=== PATIENT | male | born 1930 | race Caucasian/White ===

== ENCOUNTER 2019-01-28 14:32 | Observation (INO) | payer MEDICARE, OTHER ==
[2019-01-28] MEDS ORDERED: Sodium Chloride 0.9% 10 ML Syringe FLUSH PRN (14:34)
--- NOTE | 2019-01-28 14:45 | EDM.PDOC ---
ED HPI GENERAL MEDICAL PROBLEM - General Chief Complaint: Cardiovascular Problem Stated Complaint: CHEST PAIN AND SOB Time Seen by Provider: 01/28/19 14:42 Source of Information: Reports: Patient, Family History Limitations: Reports: Other (Dementia) - History of Present Illness INITIAL COMMENTS - FREE TEXT/NARRATIVE: Presents with intermittent substernal non-radiating chest pressure x 2 days. Denies chest discomfort at this time, but was symptomatic while walking to the exam room in the ED. Patient does admit to dyspnea, also worse with exertion. Denies prior h/o CAD. He has had a cough. Onset Date: 01/27/19 Duration: Day(s): (2) Location: Reports: Chest Quality: Reports: Pressure Severity: Moderate Worsens with: Reports: Other (exertion) Associated Symptoms: Reports: Chest Pain, Cough, Shortness of Breath - Related Data Allergies Allergy/AdvReac Type Severity Reaction Status Date / Time No Known Allergies Allergy Verified 01/28/19 15:19 Past Medical History Cardiovascular History: Reports: Hypertension. Denies: CAD Neurological History: Reports: Other (See Below) (Dementia) Social & Family History - Tobacco Use Tobacco Use Within Last Twelve Months: No ED ROS GENERAL - Review of Systems Review Of Systems: ROS reveals no pertinent complaints other than HPI. ED EXAM, GENERAL - Physical Exam Exam: See Below Exam Limited By: No Limitations General Appearance: Alert, WD/WN, No Apparent Distress Ears: Normal External Exam Nose: Normal Inspection Throat/Mouth: Normal Inspection, No Airway Compromise Head: Atraumatic, Normocephalic Neck: Supple Respiratory/Chest: No Respiratory Distress, Lungs Clear Cardiovascular: Regular Rate, Rhythm, No Murmur, Other (no chest wall tenderness ) GI/Abdominal: Non-Tender Back Exam: Full Range of Motion Extremities: Normal Range of Motion, Non-Tender, Pedal Edema Neurological: Alert, No Motor/Sensory Deficits Psychiatric: Normal Affect Skin Exam: Warm, Dry, Intact EKG INTERPRETATION EKG Date: 01/28/19 Time: 14:37 Rhythm: NSR Rate (Beats/Min): 70 [place]: Normal P-Wave: Present QRS: Normal ST-T: Normal QT: Normal EKG Interpretation Comments: Repeat EKG shows no changes Course - Vital Signs Last Recorded V/S: Last Vital Signs Temp 36.4 C 01/28/19 14:32 Pulse 68 01/28/19 14:32 Resp 18 01/28/19 14:32 BP 139/68 01/28/19 14:32 Pulse Ox 95 01/28/19 14:32 - Orders/Labs/Meds Orders: Active Orders 24 hr Category Date Time Status Admission Status [Patient Status] [ADT] Routine ADT 01/28/19 17:50 Active EKG Documentation Completion [RC] ASDIRECTED Care 01/28/19 14:33 Active EKG Documentation Completion [RC] ASDIRECTED Care 01/28/19 17:00 Active Ang Chest [CT] Stat Exams 01/28/19 15:52 Taken CULTURE BLOOD [BC] Urgent Lab 01/28/19 17:18 Received CULTURE BLOOD [BC] Urgent Lab 01/28/19 17:24 Received Sodium Chloride 0.9% [Saline Flush] Med 01/28/19 14:34 Active 10 ml FLUSH ASDIRECTED PRN Blood Culture x2 Reflex Set [OM.PC] Urgent Oth 01/28/19 17:00 Ordered Saline Lock Insert [OM.PC] Routine Oth 01/28/19 14:34 Ordered EKG 12 Lead [EK] Stat Ther 01/28/19 14:33 Ordered EKG 12 Lead [EK] Stat Ther 01/28/19 17:00 Ordered Medication Orders Sodium Chloride (Saline Flush) 10 ml FLUSH ASDIRECTED PRN PRN Reason: Keep Vein Open Last Admin: 01/28/19 15:34 Dose: 10 ml Labs: Laboratory Tests 01/28/19 01/28/19 01/28/19 Range/Units 14:45 14:45 14:45 WBC 6.8 (4.5-12.0) X10-3/uL RBC 4.44 (4.30-5.75) x10(6)uL Hgb 13.0 L (13.5-17.8) g/dL Hct 39.7 (30.0-51.3) % MCV 89.4 (80-96) fL MCH 29.4 (27.7-33.6) pg MCHC 32.9 (32.2-35.4) g/dL RDW 13.8 (11.5-15.5) % Plt Count 168 (125-369) X10(3)uL MPV 9.4 (7.4-10.4) fL Neut % (Auto) 69.2 (46-82) % Lymph % (Auto) 16.1 (13-37) % [place] % (Auto) 8.5 (4-12) % Eos % (Auto) 6 H (1.0-5.0) % Baso % (Auto) 1 (0-2) % Neut # (Auto) 4.7 (1.6-8.3) # Lymph # (Auto) 1.1 (0.6-5.0) # Stevens # (Auto) 0.6 (0.0-1.3) # Eos # (Auto) 0.4 (0.0-0.8) # Baso # (Auto) 0.0 (0.0-0.2) # PT 9.7 (8.7-11.1) INR 1.00 (0.89-1.13) APTT 23.9 L (24.4-33.2) SECONDS D-Dimer, Quantitative 1.73 H (0.0-0.59) mg/LFEU Sodium 141 (135-145) mmol/L Potassium 3.8 (3.5-5.3) mmol/L Chloride 103 (100-110) mmol/L Carbon Dioxide 32 (21-32) mmol/L BUN 20 H (7-18) mg/dL Creatinine 0.9 (0.70-1.30) mg/dL Est Cr Clr Drug Dosing TNP Estimated GFR (MDRD) > 60 (>60) BUN/Creatinine Ratio 22.2 H (9-20) Glucose 102 (80-116) mg/dL Lactic Acid (0.4-2.2) mmol/L Calcium 8.6 (8.6-10.2) mg/dL Total Bilirubin 0.3 (0.1-1.3) mg/dL AST 18 (5-25) IU/L ALT 26 (12-36) U/L Alkaline Phosphatase 51 L (56-112) IU/L Troponin I (<0.017-0.056) ng/mL NT-Pro-B Natriuret Pep (<=450) pg/mL Total Protein 6.4 (6.0-8.0) g/dL Albumin 3.6 (3.2-4.6) g/dL Globulin 2.8 g/dL Albumin/Globulin Ratio 1.3 01/28/19 01/28/19 01/28/19 Range/Units 14:45 14:45 17:18 WBC (4.5-12.0) X10-3/uL RBC (4.30-5.75) x10(6)uL Hgb (13.5-17.8) g/dL Hct (30.0-51.3) % MCV (80-96) fL MCH (27.7-33.6) pg MCHC (32.2-35.4) g/dL RDW (11.5-15.5) % Plt Count (125-369) X10(3)uL MPV (7.4-10.4) fL Neut % (Auto) (46-82) % Lymph % (Auto) (13-37) % Stevens % (Auto) (4-12) % Eos % (Auto) (1.0-5.0) % Baso % (Auto) (0-2) % Neut # (Auto) (1.6-8.3) # Lymph # (Auto) (0.6-5.0) # Stevens # (Auto) (0.0-1.3) # Eos # (Auto) (0.0-0.8) # Baso # (Auto) (0.0-0.2) # PT (8.7-11.1) INR (0.89-1.13) APTT (24.4-33.2) SECONDS D-Dimer, Quantitative (0.0-0.59) mg/LFEU Sodium (135-145) mmol/L Potassium (3.5-5.3) mmol/L Chloride (100-110) mmol/L Carbon Dioxide (21-32) mmol/L BUN (7-18) mg/dL Creatinine (0.70-1.30) mg/dL Est Cr Clr Drug Dosing Estimated GFR (MDRD) (>60) BUN/Creatinine Ratio (9-20) Glucose (80-116) mg/dL Lactic Acid 0.7 (0.4-2.2) mmol/L Calcium (8.6-10.2) mg/dL Total Bilirubin (0.1-1.3) mg/dL AST (5-25) IU/L ALT (12-36) U/L Alkaline Phosphatase (56-112) IU/L Troponin I < 0.017 L (<0.017-0.056) ng/mL NT-Pro-B Natriuret Pep 57 (<=450) pg/mL Total Protein (6.0-8.0) g/dL Albumin (3.2-4.6) g/dL Globulin g/dL Albumin/Globulin Ratio // Range/Units 17:18 WBC (4.5-12.0) X10-3/uL RBC (4.30-5.75) x10(6)uL Hgb (13.5-17.8) g/dL Hct (30.0-51.3) % MCV (80-96) fL MCH (27.7-33.6) pg MCHC (32.2-35.4) g/dL RDW (11.5-15.5) % Plt Count (125-369) X10(3)uL MPV (7.4-10.4) fL Neut % (Auto) (46-82) % Lymph % (Auto) (13-37) % Stevens % (Auto) (4-12) % Eos % (Auto) (1.0-5.0) % Baso % (Auto) (0-2) % Neut # (Auto) (1.6-8.3) # Lymph # (Auto) (0.6-5.0) # Stevens # (Auto) (0.0-1.3) # Eos # (Auto) (0.0-0.8) # Baso # (Auto) (0.0-0.2) # PT (8.7-11.1) INR (0.89-1.13) APTT (24.4-33.2) SECONDS D-Dimer, Quantitative (0.0-0.59) mg/LFEU Sodium (135-145) mmol/L Potassium (3.5-5.3) mmol/L Chloride (100-110) mmol/L Carbon Dioxide (21-32) mmol/L BUN (7-18) mg/dL Creatinine (0.70-1.30) mg/dL Est Cr Clr Drug Dosing Estimated GFR (MDRD) (>60) BUN/Creatinine Ratio (9-20) Glucose (80-116) mg/dL Lactic Acid (0.4-2.2) mmol/L Calcium (8.6-10.2) mg/dL Total Bilirubin (0.1-1.3) mg/dL AST (5-25) IU/L ALT (12-36) U/L Alkaline Phosphatase (56-112) IU/L Troponin I < 0.017 L (<0.017-0.056) ng/mL NT-Pro-B Natriuret Pep (<=450) pg/mL Total Protein (6.0-8.0) g/dL Albumin (3.2-4.6) g/dL Globulin g/dL Albumin/Globulin Ratio Influenza swab: negative Meds: Medications Generic Name Dose Route Start Last Admin Trade Name Freq PRN Reason Stop Dose Admin Sodium Chloride 10 ml 01/28/19 14:34 01/28/19 15:34 Saline Flush FLUSH 10 ml ASDIRECTED PRN Administration Keep Vein Open Discontinued Medications Generic Name Dose Route Start Last Admin Trade Name Freq PRN Reason Stop Dose Admin Aspirin 324 mg 01/28/19 15:14 01/28/19 15:27 Aspirin PO 01/28/19 15:15 324 mg ONETIME ONE Administration Iopamidol 75 ml 01/28/19 15:49 Isovue-370 (76%) IV 01/28/19 15:50 ONETIME ONE - Radiology Interpretation Free Text/Narrative:: CTA chest: No evidence for pulmonary emboli, there is a lingular infiltrate. - Re-Assessments/Exams Free Text/Narrative Re-Assessment/Exam: 01/28/19 18:39 Will admit to [facility] to r/o IN and treat pneumonia. Departure - Departure Time of Disposition: 18:40 Disposition: Refer to Observation Condition: Fair Clinical Impression: Pneumonia Qualifiers: Pneumonia type: due to unspecified organism Laterality: left Lung location: lower lobe of lung Qualified Code(s): J18.1 - Lobar pneumonia, unspecified organism Chest pain Qualifiers: Chest pain type: unspecified Qualified Code(s): R07.9 - Chest pain, unspecified - My Orders Last 24 Hours: My Active Orders 01/28/19 14:33 EKG Documentation Completion [RC] ASDIRECTED EKG 12 Lead [EK] Stat 01/28/19 14:34 Sodium Chloride 0.9% [Saline Flush] 10 ml FLUSH ASDIRECTED PRN Saline Lock Insert [OM.PC] Routine 01/28/19 15:52 Ang Chest [CT] Stat 01/28/19 17:00 EKG Documentation Completion [RC] ASDIRECTED Blood Culture x2 Reflex Set [OM.PC] Urgent EKG 12 Lead [EK] Stat 01/28/19 17:18 CULTURE BLOOD [BC] Urgent 01/28/19 17:24 CULTURE BLOOD [BC] Urgent 01/28/19 17:50 Admission Status [Patient Status] [ADT] Routine - Assessment/Plan Last 24 Hours: My Active Orders 01/28/19 14:33 EKG Documentation Completion [RC] ASDIRECTED EKG 12 Lead [EK] Stat 01/28/19 14:34 Sodium Chloride 0.9% [Saline Flush] 10 ml FLUSH ASDIRECTED PRN Saline Lock Insert [OM.PC] Routine 01/28/19 15:52 Ang Chest [CT] Stat 01/28/19 17:00 EKG Documentation Completion [RC] ASDIRECTED Blood Culture x2 Reflex Set [OM.PC] Urgent EKG 12 Lead [EK] Stat 01/28/19 17:18 CULTURE BLOOD [BC] Urgent 01/28/19 17:24 CULTURE BLOOD [BC] Urgent 01/28/19 17:50 Admission Status [Patient Status] [ADT] Routine
[2019-01-28] MEDS ORDERED: Aspirin 81 MG Tab.Chew PO ONE (15:14)
[2019-01-28] MEDS ORDERED: Iopamidol 755 Mg/ML 75 ML Bottle IV ONE (15:49)
[2019-01-28] MEDS ORDERED: Sodium Chloride 0.9% 1,000 ML IV SCH (19:15)
[2019-01-28] MEDS ORDERED: Azithromycin 500 MG in Sodium Chloride 0.9% 250 ML IV SCH (20:00)
[2019-01-28] MEDS ORDERED: cefTRIAXone 1 GM in Sodium Chloride 0.9% 50 ML IV SCH (21:00)
[2019-01-28] MEDS ORDERED: cefTRIAXone 1 GM Vial IVPUSH SCH ×2 (21:00→21:30)
[2019-01-29] MEDS ORDERED: QUETIAPINE 25 MG PO ONE (04:21)
--- NOTE | 2019-01-29 08:58 | PCM.HP ---
H&P History of Present Illness - General Date of Service: 01/29/19 Admit Problem/Dx: Admission Diagnosis/Problem Admission Diagnosis/Problem Chest pain Source of Information: Patient, Family, Old Records History Limitations: Reports: Other (Dementia) - History of Present Illness Initial Comments - Free Text/Narative: 89-year-old male that presented because of pain in the chest for 2 days. Pain is in the sternum and radiates with movement and was associated some shortness of breath. He has severe dementia and thus difficulty obtaining history from. There's been no cough, fever chills. - Related Data Allergies/Adverse Reactions: Allergies Allergy/AdvReac Type Severity Reaction Status Date / Time No Known Allergies Allergy Verified 01/28/19 15:19 Home Medications: Home Meds Acetaminophen [Tylenol] 650 mg PO Q4H PRN 01/28/19 [History] Dextran 70/Hypromellose [Artificial Tears] 1 drop EYEBOTH Q1H PRN 01/28/19 [ History] Ibuprofen 200 mg PO Q6H PRN 01/28/19 [History] QUEtiapine [SEROquel] 12.5 mg PO TID PRN 01/28/19 [History] QUEtiapine [SEROquel] 25 mg PO 08,12 01/28/19 [History] QUEtiapine [SEROquel] 50 mg PO BEDTIME 01/28/19 [History] Triamterene/Hydrochlorothiazid [Triamterene-HCTZ 37.5-25 MG] 1 tab PO DAILY [History] Past Medical History Cardiovascular History: Reports: Hypertension Neurological History: Reports: Other (See Below) Other Neuro History: dementia, also had a subdural hematoma 2 yrs ago Social & Family History - Family History Family Medical History: Noncontributory - Tobacco Use Smoking Status *Q: Never Smoker - Caffeine Use Caffeine Use: Reports: Coffee - Recreational Drug Use Recreational Drug Use: No H&P Review of Systems - Review of Systems: Review Of Systems: ROS reveals no pertinent complaints other than HPI. Exam - Exam Exam: See Below - Vital Signs Vital Signs: Last Vital Signs Temp 96.9 F 01/29/19 08:00 Pulse 77 01/29/19 08:00 Resp 18 01/29/19 08:00 BP 136/74 01/29/19 08:00 Pulse Ox 96 01/29/19 08:00 Weight: 91.626 kg - Exam General: Alert HEENT: PERRLA, Hearing Intact, Mucosa Moist & [place], Nares Patent, Normal Nasal Septum, Posterior Pharynx Clear, Conjunctiva Clear, EOMI, EACs Clear, TMs Clear Neck: Supple, Trachea Midline, 2 Lungs: Clear to Auscultation, Other (Chest wall tenderness) Cardiovascular: Regular Rate, Regular Rhythm GI/Abdominal Exam: Normal Bowel Sounds, Soft, Non-Tender, No Organomegaly, No Distention, No Abnormal Bruit, No Mass, Pelvis Stable (Male) Exam: Deferred Rectal (Males) Exam: Deferred Back Exam: Normal Inspection, Full Range of Motion, NT Extremities: Normal Inspection, Normal Range of Motion, Non-Tender, No Pedal Edema, Normal Capillary Refill Skin: Warm, Dry, Intact Neurological: Cranial Nerves Intact, Reflexes Equal Bilateral Neuro Extensive - Mental Status: Alert, Oriented x3, Normal Mood/Affect, Normal Cognition Neuro Extensive - Motor, Sensory, Reflexes: CN II-XII Intact, Normal Gait, Normal Reflexes Psychiatric: Alert - Patient Data Lab Results Last 24 hrs: Laboratory Results - last 24 hr 01/28/19 01/28/19 01/28/19 Range/Units 14:45 14:45 14:45 WBC 6.8 (4.5-12.0) X10-3/uL RBC 4.44 (4.30-5.75) x10(6)uL Hgb 13.0 L (13.5-17.8) g/dL Hct 39.7 (30.0-51.3) % MCV 89.4 (80-96) fL MCH 29.4 (27.7-33.6) pg MCHC 32.9 (32.2-35.4) g/dL RDW 13.8 (11.5-15.5) % Plt Count 168 (125-369) X10(3)uL MPV 9.4 (7.4-10.4) fL Neut % (Auto) 69.2 (46-82) % Lymph % (Auto) 16.1 (13-37) % [place] % (Auto) 8.5 (4-12) % Eos % (Auto) 6 H (1.0-5.0) % Baso % (Auto) 1 (0-2) % Neut # (Auto) 4.7 (1.6-8.3) # Lymph # (Auto) 1.1 (0.6-5.0) # [place] # (Auto) 0.6 (0.0-1.3) # Eos # (Auto) 0.4 (0.0-0.8) # Baso # (Auto) 0.0 (0.0-0.2) # PT 9.7 (8.7-11.1) INR 1.00 (0.89-1.13) APTT 23.9 L (24.4-33.2) SECONDS D-Dimer, Quantitative 1.73 H (0.0-0.59) mg/LFEU Sodium 141 (135-145) mmol/L Potassium 3.8 (3.5-5.3) mmol/L Chloride 103 (100-110) mmol/L Carbon Dioxide 32 (21-32) mmol/L BUN 20 H (7-18) mg/dL Creatinine 0.9 (0.70-1.30) mg/dL Est Cr Clr Drug Dosing TNP Estimated GFR (MDRD) > 60 (>60) BUN/Creatinine Ratio 22.2 H (9-20) Glucose 102 (80-116) mg/dL Lactic Acid (0.4-2.2) mmol/L Calcium 8.6 (8.6-10.2) mg/dL Total Bilirubin 0.3 (0.1-1.3) mg/dL AST 18 (5-25) IU/L ALT 26 (12-36) U/L Alkaline Phosphatase 51 L (56-112) IU/L Troponin I (<0.017-0.056) ng/mL NT-Pro-B Natriuret Pep (<=450) pg/mL Total Protein 6.4 (6.0-8.0) g/dL Albumin 3.6 (3.2-4.6) g/dL Globulin 2.8 g/dL Albumin/Globulin Ratio 1.3 01/28/19 01/28/19 01/28/19 Range/Units 14:45 14:45 17:18 WBC (4.5-12.0) X10-3/uL RBC (4.30-5.75) x10(6)uL Hgb (13.5-17.8) g/dL Hct (30.0-51.3) % MCV (80-96) fL MCH (27.7-33.6) pg MCHC (32.2-35.4) g/dL RDW (11.5-15.5) % Plt Count (125-369) X10(3)uL MPV (7.4-10.4) fL Neut % (Auto) (46-82) % Lymph % (Auto) (13-37) % [place] % (Auto) (4-12) % Eos % (Auto) (1.0-5.0) % Baso % (Auto) (0-2) % Neut # (Auto) (1.6-8.3) # Lymph # (Auto) (0.6-5.0) # [place] # (Auto) (0.0-1.3) # Eos # (Auto) (0.0-0.8) # Baso # (Auto) (0.0-0.2) # PT (8.7-11.1) INR (0.89-1.13) APTT (24.4-33.2) SECONDS D-Dimer, Quantitative (0.0-0.59) mg/LFEU Sodium (135-145) mmol/L Potassium (3.5-5.3) mmol/L Chloride (100-110) mmol/L Carbon Dioxide (21-32) mmol/L BUN (7-18) mg/dL Creatinine (0.70-1.30) mg/dL Est Cr Clr Drug Dosing Estimated GFR (MDRD) (>60) BUN/Creatinine Ratio (9-20) Glucose (80-116) mg/dL Lactic Acid 0.7 (0.4-2.2) mmol/L Calcium (8.6-10.2) mg/dL Total Bilirubin (0.1-1.3) mg/dL AST (5-25) IU/L ALT (12-36) U/L Alkaline Phosphatase (56-112) IU/L Troponin I < 0.017 L (<0.017-0.056) ng/mL NT-Pro-B Natriuret Pep 57 (<=450) pg/mL Total Protein (6.0-8.0) g/dL Albumin (3.2-4.6) g/dL Globulin g/dL Albumin/Globulin Ratio 01/28/19 01/29/19 01/29/19 Range/Units 17:18 00:15 06:15 WBC 7.5 (4.5-12.0) X10-3/uL RBC 4.45 (4.30-5.75) x10(6)uL Hgb 12.8 L (13.5-17.8) g/dL Hct 39.4 (30.0-51.3) % MCV 88.7 (80-96) fL MCH 28.7 (27.7-33.6) pg MCHC 32.4 (32.2-35.4) g/dL RDW 13.5 (11.5-15.5) % Plt Count 170 (125-369) X10(3)uL MPV 9.8 (7.4-10.4) fL Neut % (Auto) 68.0 (46-82) % Lymph % (Auto) 16.4 (13-37) % [place] % (Auto) 9.6 (4-12) % Eos % (Auto) 5 (1.0-5.0) % Baso % (Auto) 1 (0-2) % Neut # (Auto) 5.2 (1.6-8.3) # Lymph # (Auto) 1.2 (0.6-5.0) # [place] # (Auto) 0.7 (0.0-1.3) # Eos # (Auto) 0.4 (0.0-0.8) # Baso # (Auto) 0.0 (0.0-0.2) # PT (8.7-11.1) INR (0.89-1.13) APTT (24.4-33.2) SECONDS D-Dimer, Quantitative (0.0-0.59) mg/LFEU Sodium (135-145) mmol/L Potassium (3.5-5.3) mmol/L Chloride (100-110) mmol/L Carbon Dioxide (21-32) mmol/L BUN (7-18) mg/dL Creatinine (0.70-1.30) mg/dL Est Cr Clr Drug Dosing Estimated GFR (MDRD) (>60) BUN/Creatinine Ratio (9-20) Glucose (80-116) mg/dL Lactic Acid (0.4-2.2) mmol/L Calcium (8.6-10.2) mg/dL Total Bilirubin (0.1-1.3) mg/dL AST (5-25) IU/L ALT (12-36) U/L Alkaline Phosphatase (56-112) IU/L Troponin I < 0.017 L < 0.017 L (<0.017-0.056) ng/mL NT-Pro-B Natriuret Pep (<=450) pg/mL Total Protein (6.0-8.0) g/dL Albumin (3.2-4.6) g/dL Globulin g/dL Albumin/Globulin Ratio 01/29/19 01/29/19 Range/Units 06:15 06:15 WBC (4.5-12.0) X10-3/uL RBC (4.30-5.75) x10(6)uL Hgb (13.5-17.8) g/dL Hct (30.0-51.3) % MCV (80-96) fL MCH (27.7-33.6) pg MCHC (32.2-35.4) g/dL RDW (11.5-15.5) % Plt Count (125-369) X10(3)uL MPV (7.4-10.4) fL Neut % (Auto) (46-82) % Lymph % (Auto) (13-37) % [place] % (Auto) (4-12) % Eos % (Auto) (1.0-5.0) % Baso % (Auto) (0-2) % Neut # (Auto) (1.6-8.3) # Lymph # (Auto) (0.6-5.0) # [place] # (Auto) (0.0-1.3) # Eos # (Auto) (0.0-0.8) # Baso # (Auto) (0.0-0.2) # PT (8.7-11.1) INR (0.89-1.13) APTT (24.4-33.2) SECONDS D-Dimer, Quantitative (0.0-0.59) mg/LFEU Sodium 144 (135-145) mmol/L Potassium 3.5 (3.5-5.3) mmol/L Chloride 105 (100-110) mmol/L Carbon Dioxide 33 H (21-32) mmol/L BUN 18 (7-18) mg/dL Creatinine 1.0 (0.70-1.30) mg/dL Est Cr Clr Drug Dosing 57.12 Estimated GFR (MDRD) > 60 (>60) BUN/Creatinine Ratio 18.0 (9-20) Glucose 97 (80-116) mg/dL Lactic Acid (0.4-2.2) mmol/L Calcium 8.8 (8.6-10.2) mg/dL Total Bilirubin (0.1-1.3) mg/dL AST (5-25) IU/L ALT (12-36) U/L Alkaline Phosphatase (56-112) IU/L Troponin I < 0.017 L (<0.017-0.056) ng/mL NT-Pro-B Natriuret Pep (<=450) pg/mL Total Protein (6.0-8.0) g/dL Albumin (3.2-4.6) g/dL Globulin g/dL Albumin/Globulin Ratio Result Diagrams: 01/29/19 06:15 01/29/19 06:15 [place] Results Last 24 hrs: Microbiology 01/28/19 17:15 Influenza Type A Antigen Screen - Final Nasopharyngeal Swab NEGATIVE INFLUENZA A VIRUS AG Influenza Type B Antigen Screen - Final NEGATIVE INFLUENZA B VIRUS AG EKG INTERPRETATION Rhythm: NSR - Problem List (1) Costochondritis SNOMED Code(s): 29427823 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] Status: Acute Current Visit: Yes (2) Dementia SNOMED Code(s): 67193530 ICD Code: F03.90 - UNSPECIFIED DEMENTIA WITHOUT BEHAVIORAL DISTURBANCE Status: Acute Current Visit: Yes Qualifiers: Dementia type: Alzheimer's disease (3) Lingular pneumonia SNOMED Code(s): 487433731 ICD Code: J18.9 - PNEUMONIA, UNSPECIFIED ORGANISM Status: Acute Current Visit: Yes Problem List Initiated/Reviewed/Updated: Yes Orders Last 24hrs: Active Orders 24 hr Category Date Time Status Admission Status [Patient Status] [ADT] Routine ADT 01/28/19 17:50 Active Ambulate [RC] PER UNIT ROUTINE Care 01/28/19 19:14 Active Height and Weight [RC] 0600 Care 01/28/19 19:13 Active Intake and Output [RC] 06,14,22 Care 01/28/19 19:14 Active Notify Provider Vital Signs [RC] ASDIRECTED Care 01/28/19 19:14 Active Oxygen Therapy [RC] PRN Care 01/28/19 19:13 Active Pulse Oximetry [RC] PRN Care 01/28/19 19:14 Active Up With Assistance [RC] ASDIRECTED Care 01/28/19 19:13 Active VTE/DVT Education [RC] Per Unit Routine Care 01/28/19 19:13 Active Vital Signs [RC] Q4H Care 01/28/19 19:13 Active Heart Healthy Diet [DIET] Diet 01/29/19 Breakfast Active Ang Chest [CT] Stat Exams 01/28/19 15:52 Taken CULTURE BLOOD [BC] Urgent Lab 01/28/19 17:18 Received CULTURE BLOOD [BC] Urgent Lab 01/28/19 17:24 Received Aspirin [Ecotrin] Med 01/29/19 09:00 Active 325 mg PO DAILY Azithromycin [Zithromax] 500 mg Med 01/28/19 20:00 Active Sodium Chloride 0.9% [Normal Saline] 250 ml IV Q24H Sodium Chloride 0.9% [Saline Flush] Med 01/28/19 14:34 Active 10 ml FLUSH ASDIRECTED PRN cefTRIAXone [Rocephin] Med 01/28/19 21:30 Active 1 gm IVPUSH Q24H Blood Culture x2 Reflex Set [OM.PC] Urgent Oth 01/28/19 17:00 Ordered Saline Lock Insert [OM.PC] Routine Oth 01/28/19 14:34 Ordered Resuscitation Status Routine Resus Stat 01/28/19 19:13 Ordered EKG 12 Lead [EK] AM Ther 01/29/19 05:11 Ordered EKG 12 Lead [EK] Stat Ther 01/28/19 14:33 Ordered EKG 12 Lead [EK] Stat Ther 01/28/19 17:00 Ordered Medication Orders Aspirin (Ecotrin) 325 mg PO DAILY HUE Ceftriaxone Sodium (Rocephin) 1 gm IVPUSH Q24H HUE Last Admin: 01/29/19 00:02 Dose: 1 gm Azithromycin 500 mg/ Sodium (Chloride) 250 mls @ 250 mls/hr IV Q24H HUE Last Admin: 01/28/19 20:53 Dose: 250 mls/hr Sodium Chloride (Saline Flush) 10 ml FLUSH ASDIRECTED PRN PRN Reason: Keep Vein Open Last Admin: 01/28/19 15:34 Dose: 10 ml Assessment/Plan Comment:: DC home with NSAID and Zpak. Follow up PRN
[2019-01-29] MEDS ORDERED: Aspirin 325 MG Tab.EC PO SCH (09:00)
--- NOTE | 2019-01-31 08:48 | CT ---
INDICATION: Chest pain. COMPUTERIZED TOMOGRAPHY ANGIOGRAPHY OF THE CHEST WITH CONTRAST: Spiral 1.25 mm axial images of the chest were obtained with 75 mL Isovue 370 at 3 mL/second, with sagittal and coronal reconstructions, 01/28/19 - no comparisons. Total exam DLP = 657.58 mGy-cm. There appears to be some minimal infiltrate in the left lower lobe and the lingula. This may be on the basis of pneumonia and pleuritis. There may also be some fibrosis present in that area. The entire area of pleural thickening appearance may be on the basis of fibrosis - correlate clinically. No gross consolidating pneumonia or effusion of large size was seen. Pulmonary arteries were not ideally visualized. However, no definite pulmonary embolus could be identified. The heart was not enlarged. No pericardial effusion was seen. There is some minimal coronary artery calcification. Calcifications are also noted in the arch of the aorta. Mild degree of mediastinal lymphadenopathy is noted, which is nonspecific. The upper abdomen included on the study showed evidence of somewhat dilated proximal abdominal aorta, compatible with a small aneurysmal dilatation, limited to the uppermost abdomen and above the renal arteries. There appears to be some renal fascial thickening on the left, compatible with renal cortical scarring. Bridging hyperostotic changes are noted in the mid to lower thoracic spine with a minimal dextroconvex scoliosis of the lower middle thoracic spine. IMPRESSION: 1. No definite evidence of PE. Caudal Pulmonary arteries were not ideally seen , however, possibly due to motion. 2. ASHD/ASD. 3. Renal cortical scarring. 4. Mild aneurysmal dilatation of the proximal-most abdominal aorta, well above the renal arteries. 5. Suggestion of minimal infiltrate and pleural reaction at the left lower lobe and minimally in the lingula, which may be on the basis of fibrosis and/or minimal pneumonia and pleuritis. 6. Degenerative changes and minimal scoliosis lower middle thoracic spine. Report was called to Dr. Saleh at approximately 1655 hours on 01/28/19. [facility]
== END 2019-01-29 10:05 | disposition home health service (06) ==
LOC: FB.ED 14:32 → FB.MS 18:37
PROVIDERS: ADMIT Family Medicine; ATTEND Family Medicine
DX: M94.0 Chondrocostal junction syndrome [Tietze] (principal); G30.9 Alzheimer's disease, unspecified; F02.80 Dementia in other diseases classified elsewhere, unspecified severity, without behavioral disturbance, psychotic disturbance, mood disturbance, and anxiety; J18.1 Lobar pneumonia, unspecified organism; I10 Essential (primary) hypertension; Z79.899 Other long term (current) drug therapy
CPT/HCPCS: 36415; 71275; 80048; 80053; 83605; 83880; 84484; 85025; 85379; 85610; 85730; 87040; 87804; 87804-59; 93005; 93010; 96374; 96375; 99285; A9270-GY; G0378; J0456; J0696; J7030; J7050; Q9967

== ENCOUNTER 2019-11-09 14:03 | Emergency (ER) | payer MEDICARE, OTHER ==
[2019-11-09] MEDS ORDERED: QUEtiapine 25 MG Tab PO ONE (14:26)
--- NOTE | 2019-11-09 17:07 | ER ---
DATE SEEN: 11/09/2019 REASON FOR VISIT: Behavioral changes. HISTORY OF PRESENT ILLNESS: Suzie is an 89-year-old male who lives at the [facility]. He is brought by family members, and the chief complaint is agitation and behavioral disturbance, especially at night. He has had this before and is currently on Seroquel total of 125 mg a day in divided doses. For the last two nights, especially last night, he was physically aggressive to the point where they were unable to control him. They are wondering if there are any changes to medications to help his symptoms. REVIEW OF SYSTEMS: There is no report of any fever. No report of chills, cough, or any urinary symptoms or trauma. ALLERGIES: None. MEDICATIONS: Please see the nurse's hard copy. I also did call the nurse at the [facility] and had a discussion on the telephone. PHYSICAL EXAMINATION: GENERAL: When I examined him, he is not in any particular distress. He is well nourished. VITAL SIGNS: His blood pressure is 116/60 and pulse is 86, and temperature 97.6. HEENT: Head is atraumatic. Eyes are normal. MENTAL STATUS: He is hard of hearing, but is calm and answers questions well. Did not exhibit signs of agitation, nani, anxiety, or psychosis. FINAL IMPRESSION: Dementia with behavior disturbance. PLAN: I will increase the evening dose to 100 mg at night from 50 mg. Then, I also ask them to follow up with Dr. Valenzuela tomorrow because the [facility] feel that he is getting to a place where they might not be able to take care of him long-term. /[id number] MAUREEN/KATELYNL
== END 2019-11-09 14:40 | disposition home or self-care (01) ==
LOC: FB.ED 14:12
DX: F03.91 Unspecified dementia, unspecified severity, with behavioral disturbance (principal)
CPT/HCPCS: 99284; A9270; 99283

== ENCOUNTER 2021-04-14 17:52 | Emergency (ER) | payer MEDICARE, OTHER ==
[2021-04-14 18:18] LABS: BASE EXCESS VENOUS,POC 2 mmol/L (-2-3); HCO3 VENOUS,POC 29 mmol/L (21-29); PCO2 VENOUS,POC 57 mmHg (41-51); PH VENOUS,POC 7.31 pH Units (7.32-7.43)
[2021-04-14] MEDS ORDERED: Sodium Chloride 0.9% 1,000 ML IV ONE (18:45)
--- NOTE | 2021-04-14 18:51 | EDM.PDOC ---
ED HPI GENERAL MEDICAL PROBLEM - General Chief Complaint: Neurological Problem Stated Complaint: choked, shortly unresponsive Time Seen by Provider: 04/14/21 17:52 Source of Information: Reports: Patient History Limitations: Reports: No Limitations - History of Present Illness INITIAL COMMENTS - FREE TEXT/NARRATIVE: c/o unresponsive with dementia, in memory care unit, dtr feeding him supper, he was more distracted than usual, looking around after eating about 25% of his supper his eyes rolled up and his upper body began shaking, not clear if any shaking of extremities staff laid him down and reported that he did not breath for one minute, no cough, no choking he was breathing and interacting at his baseline when EMS arrived EKG by EMS was NSR without ectopy or ST changes or evidence of LVH repeat EKG here deferred as pt was combative, trop and BNP neg here, no prior CV hx per dtr no h/o szs DNR/DNI had labs 6w ago at [facility] in [place], furosemide for LE edema stopped 10d ago, labs repeated at [facility] 3d ago, results not immediately available - Related Data Allergies Allergy/AdvReac Type Severity Reaction Status Date / Time No Known Allergies Allergy Verified 01/28/19 15:19 Home Meds: Home Meds Acetaminophen [Tylenol] 650 mg PO Q4H PRN 01/28/19 [History] Dextran 70/Hypromellose [Artificial Tears] 1 drop EYEBOTH Q1H PRN 01/28/19 [History] Ibuprofen 200 mg PO Q6H PRN 01/28/19 [History] QUEtiapine [SEROquel] 12.5 mg PO TID PRN 01/28/19 [History] QUEtiapine [SEROquel] 25 mg PO 08,12 01/28/19 [History] QUEtiapine [SEROquel] 50 mg PO BEDTIME 01/28/19 [History] Triamterene/Hydrochlorothiazid [Triamterene-HCTZ 37.5-25 MG] 1 tab PO DAILY 01/28/19 [History] Azithromycin [Zithromax] 250 mg PO DAILY #4 tab 01/29/19 [Rx] Naproxen 500 mg PO BID #10 tablet 01/29/19 [Rx] Past Medical History Cardiovascular History: Reports: Hypertension Neurological History: Reports: Other (See Below) Other Neuro History: dementia, also had a subdural hematoma 2 yrs ago Psychiatric History: Reports: Mood Swings Other Psychiatric History: Daughter states that recently he has had a couple of episodes that were small behavioral. Social & Family History - Family History Family Medical History: No Pertinent Family History - Caffeine Use Caffeine Use: Reports: Coffee ED ROS GENERAL - Review of Systems Review Of Systems: Comprehensive ROS is negative, except as noted in HPI. Constitutional: Reports: No Symptoms HEENT: Reports: No Symptoms Respiratory: Reports: No Symptoms. Denies: Shortness of Breath, Wheezing, Cough Cardiovascular: Reports: No Symptoms. Denies: Chest Pain Endocrine: Reports: No Symptoms GI/Abdominal: Reports: No Symptoms. Denies: Nausea, Vomiting : Reports: No Symptoms Musculoskeletal: Reports: No Symptoms Skin: Reports: No Symptoms Neurological: Reports: No Symptoms Psychiatric: Reports: No Symptoms Hematologic/Lymphatic: Reports: No Symptoms Immunologic: Reports: No Symptoms ED EXAM, GENERAL - Physical Exam Exam: See Below Exam Limited By: Altered Mental Status General Appearance: Alert, WD/WN, Other (interacting at baseline) Ears: Normal External Exam Nose: Normal Inspection Throat/Mouth: Normal Inspection, Normal Voice, No Airway Compromise, Other (did speak a few words, good eye contact, thrashed around when blood drawn) Head: Atraumatic, Normocephalic Neck: Supple, Non-Tender. No: Lymphadenopathy (R), Lymphadenopathy (L) Respiratory/Chest: No Respiratory Distress, Lungs Clear, Normal Breath Sounds, Chest Non-Tender Cardiovascular: Regular Rate, Rhythm, Other (2/6 COY at LSB, quiet precordium, 3 + edema to knees b/l, 1+ thigh edema b/l, symmetric). No: Gallop/S3, Gallop/S4 GI/Abdominal: Normal Bowel Sounds, Soft, Non-Tender, No Distention Back Exam: Normal Inspection. No: CVA Tenderness (R), CVA Tenderness (L) Extremities: Non-Tender, Pedal Edema Neurological: Alert, CN II-XII Intact, No Motor/Sensory Deficits, Other (not postictal) Skin Exam: Warm, Dry, Intact, Normal Color, No Rash Lymphatic: No Adenopathy Course - Vital Signs Last Recorded V/S: Last Vital Signs Temp Pulse 61 04/14/21 17:53 Resp 24 H 04/14/21 17:53 BP 117/58 L 04/14/21 17:53 Pulse Ox 93 L 04/14/21 17:53 - Orders/Labs/Meds Orders: Active Orders 24 hr Category Date Time Status EKG Documentation Completion [RC] ASDIRECTED Care 04/14/21 17:58 Ordered Chest 1V Frontal [CR] Stat Exams 04/14/21 17:59 Ordered Head wo Cont [CT] Stat Exams 04/14/21 17:59 Ordered CULTURE BLOOD [BC] Stat Lab 04/14/21 17:57 Ordered URINALYSIS W/MICROSCOPIC [UA W/MICROSCOPIC] [URIN] Stat Lab 04/14/21 17:59 Ordered Sodium Chloride 0.9% [Normal Saline] 1,000 ml Med 04/14/21 18:45 Ordered IV .BOLUS EKG 12 Lead [EK] Routine Ther 04/14/21 17:57 Ordered Medication Orders Sodium Chloride (Normal Saline) 1,000 mls @ 500 mls/hr IV .BOLUS ONE Stop: 04/14/21 20:44 Labs: Laboratory Tests 04/14/21 04/14/21 04/14/21 Range/Units 18:00 18:00 18:00 WBC 6.3 (3.2-10.1) x10-3/uL RBC 3.45 L (3.90-5.90) x10(6)uL Hgb 10.8 L (12.9-17.7) g/dL Hct 32.8 L (38.3-50.1) % MCV 94.9 (80.8-98.7) fL MCH 31.3 (27.0-33.3) pg MCHC 32.9 (28.7-35.3) g/dL RDW 14.3 (12.4-15.0) % Plt Count 161 (117-477) x10(3)uL MPV 9.1 (6.7-11.0) fL Neut % (Auto) 69.1 (40.3-71.8) % Lymph % (Auto) 17.7 (15.8-45.3) % [place] % (Auto) 8.6 (5.5-15.2) % Eos % (Auto) 4.2 (0.1-6.8) % Baso % (Auto) 0.4 (0.3-3.8) % Neut # (Auto) 4.3 (1.7-6.9) x10-3/uL Lymph # (Auto) 1.1 (0.5-4.5) x10-3/uL [place] # (Auto) 0.5 (0.0-1.2) x10-3/uL Eos # (Auto) 0.3 (0.0-0.6) x10-3/uL Baso # (Auto) 0.0 (0.0-0.3) x10-3/uL POC VBG pH (7.32-7.43) pH Units POC VBG pCO2 (41-51) mmHg POC VBG HCO3 (21-29) mmol/L VBG Base Excess (-2-3) mmol/L O2 Delivery Device Sodium 147 H (135-145) mmol/L Potassium 4.4 (3.5-5.3) mmol/L Chloride 108 (100-110) mmol/L Carbon Dioxide 32 (21-32) mmol/L BUN 24 H (7-18) mg/dL Creatinine 1.1 (0.70-1.30) mg/dL Est Cr Clr Drug Dosing mL/min Estimated GFR (MDRD) > 60 (>60) BUN/Creatinine Ratio 21.8 H (9-20) Glucose 111 (80-116) mg/dL Lactic Acid (0.4-2.0) mmol/L Calcium 8.2 L (8.6-10.2) mg/dL Total Bilirubin 0.3 (0.1-1.3) mg/dL AST 16 D (5-25) IU/L ALT 30 D (12-36) U/L Alkaline Phosphatase 61 (56-112) IU/L Troponin I 11.5 (4.0-60.3) pg/mL C-Reactive Protein 1.1 H (0.5-0.9) mg/dL NT-Pro-B Natriuret Pep 361 (<=450) pg/mL Total Protein 6.3 (6.0-8.0) g/dL Albumin 3.6 (2.9-4.5) g/dL Globulin 2.7 g/dL Albumin/Globulin Ratio 1.3 04/14/21 04/14/21 Range/Units 18:00 18:00 WBC (3.2-10.1) x10-3/uL RBC (3.90-5.90) x10(6)uL Hgb (12.9-17.7) g/dL Hct (38.3-50.1) % MCV (80.8-98.7) fL MCH (27.0-33.3) pg MCHC (28.7-35.3) g/dL RDW (12.4-15.0) % Plt Count (117-477) x10(3)uL MPV (6.7-11.0) fL Neut % (Auto) (40.3-71.8) % Lymph % (Auto) (15.8-45.3) % [place] % (Auto) (5.5-15.2) % Eos % (Auto) (0.1-6.8) % Baso % (Auto) (0.3-3.8) % Neut # (Auto) (1.7-6.9) x10-3/uL Lymph # (Auto) (0.5-4.5) x10-3/uL [place] # (Auto) (0.0-1.2) x10-3/uL Eos # (Auto) (0.0-0.6) x10-3/uL Baso # (Auto) (0.0-0.3) x10-3/uL POC VBG pH 7.31 L (7.32-7.43) pH Units POC VBG pCO2 57 H (41-51) mmHg POC VBG HCO3 29 (21-29) mmol/L VBG Base Excess 2 (-2-3) mmol/L O2 Delivery Device Room air Sodium (135-145) mmol/L Potassium (3.5-5.3) mmol/L Chloride (100-110) mmol/L Carbon Dioxide (21-32) mmol/L BUN (7-18) mg/dL Creatinine (0.70-1.30) mg/dL Est Cr Clr Drug Dosing mL/min Estimated GFR (MDRD) (>60) BUN/Creatinine Ratio (9-20) Glucose (80-116) mg/dL Lactic Acid 3.0 H* (0.4-2.0) mmol/L Calcium (8.6-10.2) mg/dL Total Bilirubin (0.1-1.3) mg/dL AST (5-25) IU/L ALT (12-36) U/L Alkaline Phosphatase (56-112) IU/L Troponin I (4.0-60.3) pg/mL C-Reactive Protein (0.5-0.9) mg/dL NT-Pro-B Natriuret Pep (<=450) pg/mL Total Protein (6.0-8.0) g/dL Albumin (2.9-4.5) g/dL Globulin g/dL Albumin/Globulin Ratio Meds: Medications Generic Name Dose Route Start Last Admin Trade Name Freq PRN Reason Stop Dose Admin Sodium Chloride 1,000 mls @ 500 mls/hr 04/14/21 18:45 Normal Saline IV 04/14/21 20:44 .BOLUS ONE - Re-Assessments/Exams Free Text/Narrative Re-Assessment/Exam: 04/14/21 18:52 labs reviewed with dtr, signed out to Dr Wilson at change of shift mild dec pH and inc CO2 and lactic acid 3.0 c/w CV or pul arrest for 60 second, will give 1 liter NS CxR 1v and head CT pending disposition as per Dr Wilson Departure - Departure Time of Disposition: 18:53 Disposition: Still A Patient 30 Condition: Fair Clinical Impression: Syncope and collapse, Cardiopulmonary arrest, Elevated lactic acid level, Respiratory acidosis, Elevated C-reactive protein (CRP), Bilateral lower extremity edema, Agitation due to dementia, Incontinence, Normocytic normochromic anemia - Discharge Information *PRESCRIPTION DRUG MONITORING PROGRAM REVIEWED*: Not Applicable *COPY OF PRESCRIPTION DRUG MONITORING REPORT IN PATIENT SABI: Not Applicable Sepsis Event Note (ED) - Evaluation Sepsis Screening Result: No Definite Risk - Focused Exam Vital Signs: Vital Signs Pulse Resp BP Pulse Ox 04/14/21 17:53 61 24 H 117/58 L 93 L - My Orders Last 24 Hours: My Active Orders 04/14/21 17:57 CULTURE BLOOD [BC] Stat EKG 12 Lead [EK] Routine 04/14/21 17:58 EKG Documentation Completion [RC] ASDIRECTED 04/14/21 17:59 Chest 1V Frontal [CR] Stat Head wo Cont [CT] Stat URINALYSIS W/MICROSCOPIC [UA W/MICROSCOPIC] [URIN] Stat 04/14/21 18:45 Sodium Chloride 0.9% [Normal Saline] 1,000 ml IV .BOLUS - Assessment/Plan Last 24 Hours: My Active Orders 04/14/21 17:57 CULTURE BLOOD [BC] Stat EKG 12 Lead [EK] Routine 04/14/21 17:58 EKG Documentation Completion [RC] ASDIRECTED 04/14/21 17:59 Chest 1V Frontal [CR] Stat Head wo Cont [CT] Stat URINALYSIS W/MICROSCOPIC [UA W/MICROSCOPIC] [URIN] Stat 04/14/21 18:45 Sodium Chloride 0.9% [Normal Saline] 1,000 ml IV .BOLUS
[2021-04-14] MEDS ORDERED: Sodium Chloride 0.9% 500 ML IV ONE (21:05)
--- NOTE | 2021-04-15 11:25 | CR ---
CHEST ONE VIEW [id number] INDICATION: Syncope. Two AP upright portable views of the chest were obtained 04/14/[address] of the chest from 01/28/2019. There is again noted elevation of the left hemidiaphragm which may be at least partly anatomic and appears similar to the previous study. Distended air filled stomach is noted. Overlying EKG leads and snaps are noted. Pulmonary vasculature appears to be somewhat prominent in the upper lung oliveros raising question of a mild or early CHF. Heart size is difficult to evaluate due to the elevated diaphragm and poor inspiration. No definite consolidating pneumonia or definite effusion was seen. IMPRESSION: Cannot exclude CHF with possible cardiomegaly but study limited due to patient inability to cooperate and poor inspiration with AP positioning. MTDD
== END 2021-04-14 21:28 | disposition home or self-care (01) ==
LOC: FB.ED 17:52
DX: I46.9 Cardiac arrest, cause unspecified (principal); R55 Syncope and collapse; E87.2 Acidosis; R60.0 Localized edema; R45.1 Restlessness and agitation; F03.90 Unspecified dementia, unspecified severity, without behavioral disturbance, psychotic disturbance, mood disturbance, and anxiety; D64.9 Anemia, unspecified; R32 Unspecified urinary incontinence; R79.82 Elevated C-reactive protein (CRP); I10 Essential (primary) hypertension
CPT/HCPCS: 36415; 70450; 71045; 80053; 81001; 83605; 83880; 84484; 85025; 86140; 87040; 87086; 93005; 99285; J7040